=== PATIENT | female | born 1950 | race Caucasian/White ===

== ENCOUNTER 2017-06-14 05:36 | Day surgery (SDC) | payer OTHER ==
[~2017-06-14] VITALS: Ht 170.2 cm; Wt 70.8 kg
[~2017-06-14 05:36] MED LIST: CALCITRIOL0.25 MCG PO; LANSOPRAZOLE30 MG PO; LEXAPRO5 MG PO; MIDAMOR5 MG PO; NORTRIPTYLINE H10 MG PO; REMICADE10 MG/ML IV; SODIUM BICARBO325 MG PO; TENORMIN25 MG PO; VITRON-C TABLE1 EACH PO
[2017-06-14 06:42] VITALS: BP 124/68
[2017-06-14 06:48] LABS: HEMATOCRIT 28.4 % (36.0-46.0); MCV 90.4 FL (83-99); PLATELET COUNT 156 K/uL (156-360); RBC DIS.WIDTH-CV 14.1 % (11.8-14.6); RBC DIS.WIDTH-SD 46.7 % (39-53); RED BLOOD COUNT 3.14 M/uL (3.80-5.20)
[2017-06-14 07:16] LABS: ANION GAP 10 MEQ/L (2-14); CHLORIDE 112 MEQ/L (99-109); GFR ESTIMATE (CALCULATED) 9 mL/min/; GLUCOSE 96 mg/dL (70-99); POTASSIUM 3.9 MEQ/L (3.7-5.4); SAMPLE HEMOLYSIS CHECK 0; SAMPLE ICTERIC CHECK 0; SAMPLE LIPEMIA CHECK 0; SODIUM 140 MEQ/L (136-147); UREA NITROGEN (BUN) 36 mg/dL (9-23)
[2017-06-14] MEDS ORDERED: NORCO 5/3251 TABLET PO (09:01)
[2017-06-14 09:40] VITALS: BP 123/63
[2017-06-14 10:35] VITALS: BP 108/68
[2017-06-14 11:15] VITALS: BP 110/68
== END 2017-06-14 11:25 | disposition home or self-care (01) ==
LOC: SDC 05:36
PROVIDERS: Surgery
PROC: 0WHG43Z Insertion of Infusion Device into Peritoneal Cavity, Percutaneous Endoscopic Approach (ICD-10-PCS; principal; 2017-06-14)
DX: I12.0 Hypertensive chronic kidney disease with stage 5 chronic kidney disease or end stage renal disease (principal); N18.6 End stage renal disease; Z99.2 Dependence on renal dialysis; K50.90 Crohn's disease, unspecified, without complications; K21.0 Gastro-esophageal reflux disease with esophagitis; I49.9 Cardiac arrhythmia, unspecified
CPT/HCPCS: 80048; 85027; 93005; C1750; J0131; J1100; J2250; J2405; J2710; J3010; S0020

== ENCOUNTER 2018-02-09 13:45 | Day surgery (SDC) | payer BC, OTHER ==
[~2018-02-09] VITALS: Ht 170.2 cm; Wt 73.4 kg
[~2018-02-09 13:45] MED LIST changes: +ASPIR 8181 M1 PO; -LANSOPRAZOLE30 MG PO; +LEXAPRO10 MG PO; -LEXAPRO5 MG PO; +LIPITOR40 MG PO; +LOPRESSOR50 MG PO; +MAGNESIUM OXID400 MG PO; +NEPHRO-VITE,1 TABLET PO; +NORCO 5/3251 TABLET PO; +PREVACID15 MG PO; +PROCRIT3000 UNIT1 SC
[2018-02-09 14:23] VITALS: BP 164/80
[2018-02-09 14:27] LABS: HEMATOCRIT 24.8 % (36.0-46.0); MCH 29.3 PG (29.0-34.0); MCHC 32.3 G/DL (30.0-36.0); MCV 90.8 FL (83-99); PLATELET COUNT 172 K/uL (156-360); RBC DIS.WIDTH-CV 14.6 % (11.8-14.6); RBC DIS.WIDTH-SD 48.1 % (39-53); RED BLOOD COUNT 2.73 M/uL (3.80-5.20)
[2018-02-09 14:49] LABS: CHLORIDE 109 MEQ/L (99-109); CREATININE 6.3 MG/DL (0.6-1.3); GFR ESTIMATE (CALCULATED) 7 mL/min/; GLUCOSE 97 mg/dL (70-99); POTASSIUM 4.5 MEQ/L (3.7-5.4); SODIUM 140 MEQ/L (136-147); UREA NITROGEN (BUN) 35 mg/dL (9-23)
[2018-02-09] MEDS ORDERED: NORCO 5/3251 TABLET PO (19:39)
[2018-02-09 21:35] VITALS: BP 143/71
[2018-02-09 21:40] VITALS: BP 160/75
== END 2018-02-09 21:45 | disposition home or self-care (01) ==
LOC: SDC 13:45
PROVIDERS: Surgery
PROC: 0JWT33Z Revision of Infusion Device in Trunk Subcutaneous Tissue and Fascia, Percutaneous Approach (ICD-10-PCS; principal; 2018-02-09)
DX: I12.0 Hypertensive chronic kidney disease with stage 5 chronic kidney disease or end stage renal disease (principal); N18.5 Chronic kidney disease, stage 5; K50.90 Crohn's disease, unspecified, without complications; Z79.899 Other long term (current) drug therapy; F32.9 Major depressive disorder, single episode, unspecified; K21.9 Gastro-esophageal reflux disease without esophagitis; E21.1 Secondary hyperparathyroidism, not elsewhere classified; E26.81 Bartter's syndrome; E87.6 Hypokalemia; Z87.442 Personal history of urinary calculi; Z79.82 Long term (current) use of aspirin; Z88.1 Allergy status to other antibiotic agents; Z82.49 Family history of ischemic heart disease and other diseases of the circulatory system; Z82.0 Family history of epilepsy and other diseases of the nervous system
CPT/HCPCS: 80048; 85027; C1750; J0690; J3010; S0020